=== PATIENT | male | born 1990 | race Caucasian/White ===

== ENCOUNTER 2016-10-30 16:51 | Emergency (ER) | payer BC ==
[~2016-10-30] VITALS: Ht 180.3 cm; Wt 86.0 kg
[2016-10-30 16:53] VITALS: BP 156/82; TEMP 97.9
[2016-10-30 18:13] VITALS: PULSE 65
== END 2016-10-30 18:14 | disposition home or self-care (01) ==
LOC: COL.ER 16:51
DX: R07.89 Other chest pain (principal)